=== PATIENT | male | born 1930 | race African-American/Black ===

== ENCOUNTER → 2017-02-27 | Outpatient (CLI) | payer MEDICARE, OTHER ==
[~2017-02-27] MED LIST: ACETAMINOPHEN PO; AFRIN NASAL SPR15 ML INH; ALPRAZOLAM0.25 MG PO; ANTIBIOTIC; ARTHROTEC 501 TAB.EC PO; AUGMENTIN875 MG PO; AZELASTINE; BACTRIM 400-801 TA1; BAYER ASPIRIN325 M1 PO; CARDURA PO; CARDURA4 M1 PO; DESYREL100 MG PO; DIOVAN PO; DIOVAN160 MG PO; FAMOTIDINE PO; FLEXERIL10 MG PO; FOLBIC RF TABL1 EACH PO; GLUCOVANCE; GLUCOVANCE 5/501 TA1 PO; GLUCOVANCE 5/501 TA2 PO; HCTZ PO; HYDRALAZINE HCL50 MG PO; HYDROCODONE/A1 UDTA2 PO; INSULIN LANTIS INJ; KEFLEX500 MG PO; LANSOPRAZOLE30 MG PO; LANTUS100 U/ML SUBQ; LIPITOR40 MG PO; LORTAB 10/500 T1 TAB PO; MULTI VITAMIN1 EACH PO; NEURONTIN300 MG PO; NORVASC PO; ONGLYZA2.5 MG PO; PERCOCET PO; PLAVIX PO; PREDNISONE PO; PROSCAR5 MG PO; TOPROL XL PO; TRAZODONE HCL100 MG; TRAZODONE PO; VALSARTAN80 MG PO; ZOCOR PO; ZOFRAN ODT4 MG PO; ZOFRAN PO; ZYRTEC PO; ZYRTEC5 MG PO
--- NOTE | ~2017-02-27 | CT2 ---
[facility] A Service of [facility] RADIOLOGY TEXT RESULTS PATIENT: MARIUSZ DAVID LOCATION: [facility] : 32 UNIT #: [id number] AGE: [address]: Kwesi Flores MD SEX: M ORDER DR: [id number] [facility] [address] [place], [place] [address] [id number] O MR#: [id number] [facility] #: [id number] NAME: MARIUSZ DAVID : 1930 SEX: M STUDY DATE/TIME: 02/27/2017 13:52 [facility]: STUDY DESCRIPTION: CT Abd and Pelv W Cont Attending Physician: Kwesi Flores M.D. Referring Physician: Kwesi Flores M.D. Ordering Physician: Kwesi Flores M.D. Primary Care Physician: Samy Scanlon Aprn MEDICAL IMAGING REPORT This report is preliminary unless electronic signature is present EXAM CT of the abdomen and pelvis with contrast. INDICATION Left lower quadrant pain for 6-[address] images were obtained from the dome of the diaphragm through the symphysis pubis following administration of oral and intravenous contrast material. FINDINGS The images through the lung bases demonstrate some mild scarring versus atelectasis. Patient has bilateral renal cysts. Adrenal glands appear unremarkable. Pancreas is mildly atrophic. Spleen is within normal limits. The stomach and proximal small bowel appear normal. Liver appears unremarkable. Patient does have some cholelithiasis. This was also identified on the prior study. There is atherosclerotic involvement of the abdominal aorta, but it is relatively mild. The prostate gland is enlarged. There is a fat-containing right inguinal hernia. Patient has extensive fecal burden seen throughout the colon, and there is a sousa colonic diverticulosis, although I do not see any evidence of diverticulitis. Patient's appendix is visualized and is within normal limits. Bladder appears somewhat thick-walled, but this may be related to some degree of bladder outlet obstruction by the patient's enlarged prostate gland. The appearance is similar to an exam from August 2014. Review of bone windows does not demonstrate any aggressive osseous abnormalities. 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 IMPRESSION [facility] A Service of [facility] RADIOLOGY TEXT RESULTS PATIENT: MARIUSZ DAVID LOCATION: [facility] : 31 UNIT #: [id number] AGE: [address]: Kwesi Flores MD SEX: M ORDER DR: 1. No definite acute intraabdominal or intrapelvic process is seen to account for the patient's symptomatology. Patient does have sousa colonic diverticulosis, but I do not see any evidence of diverticulitis. There is cholelithiasis without any evidence of acute cholecystitis. 2. Bilateral renal cysts. 3. Also noted, but mentioned in the report is a small fat-containing umbilical hernia. 4. This patient does have some wall thickening involving the bladder, particularly the right lateral wall; similar findings were present in August 2014, and I do not think they are really significantly changed. This is favored to be some redundancy within the bladder, perhaps related to some chronic bladder outlet obstruction from the patient's enlarged prostate gland. 5. Please see the body of the report for any other additional incidental findings. Dictated by... Pam Bettencourt M.D. THIS IS AN ELECTRONICALLY VERIFIED REPORT Pam Bettencourt M.D. at 02/28/2017 5:13 PM [facility] TD: 02/27/2017 18:10 JOB #: [id number] MEDICAL IMAGING REPORT Page 1 of 1 COPY
[2017-02-27 12:03] LABS: HEMOGLOBIN 12.6 gm/dL (13.0-16.0); MEAN CORPUSCULAR HEMOGLOBIN 29.7 PG (28-34); MEAN CORPUSCULAR HGB CONC 31.6 g/dL (30-36); MEAN PLATELET VOLUME 7.9 FL (6.5-11.5); RED BLOOD COUNT 4.26 X10e (3.90-5.60); RED CELL DISTRIBUTION WIDTH 14.9 % (11.0-15.5); WHITE BLOOD COUNT 5.9 X10e3 (4.0-10.5)
[2017-02-27 12:28] LABS: ALBUMIN SERUM 3.5 g/dL (3.5-5.0); BILIRUBIN,TOTAL 0.3 mg/dL (0.2-2.0); CALCIUM SERUM 9.1 mg/dL (8.4-10.2); CREATININE SERUM 0.8 mg/dL (0.6-1.4); GLOM FILT RATE Estimated 93.8 mL/min (>60); PROTEIN TOTAL SERUM 6.7 g/dL (6.0-8.3)
== END | disposition home or self-care (01) ==
LOC: CCAT 11:28
PROVIDERS: Internal Medicine
DX: R10.9 Unspecified abdominal pain (principal); K57.30 Diverticulosis of large intestine without perforation or abscess without bleeding; K80.20 Calculus of gallbladder without cholecystitis without obstruction; N28.1 Cyst of kidney, acquired; K42.9 Umbilical hernia without obstruction or gangrene; N32.89 Other specified disorders of bladder; N40.0 Benign prostatic hyperplasia without lower urinary tract symptoms
CPT/HCPCS: 36415; 74177; 80053; 84443; 85027; Q9967